=== PATIENT | female | born 1955 | race Caucasian/White ===

== ENCOUNTER 2019-03-11 11:48 | Emergency (ER) | payer MEDICARE ==
[~2019-03-11] VITALS: Ht 162.6 cm; Wt 67.1 kg
[2019-03-11 12:00] VITALS: BP 126/82
[2019-03-11] MEDS ORDERED: CETI10TA16 PO (12:12)
[2019-03-11] MEDS ORDERED: SULF1TAB24 PO (12:12)
--- NOTE | 2019-03-11 12:12 | PHYS DOC ---
Past History Past Medical History: Asthma, Migraines Additional Past Medical Histor: patella fracture Smoking: Non-smoker Alcohol Use: None Drug Use: None Adult General Chief Complaint Chief Complaint: EYE PROBLEMS HPI HPI Patient is a [64-year-old female presents with left facial redness and swelling. It is tender to touch. This has been present for the past 3 days, waxing and waning. No drainage. No trauma. No new makeups. No fever. No visual changes. Patient does not wear glasses or contacts other than reading glasses. Nothing seems to make the symptoms better or worse. Patient is visiting family, coming from [place].[] Review of Systems Review of Systems Constitutional: Denies fever or chills [] Eyes: Denies change in visual acuity, redness, or eye pain [] HENT: Denies nasal congestion or sore throat [] Respiratory: Denies cough or shortness of breath [] Cardiovascular: No chest pain or palpitations[] GI: Denies abdominal pain, nausea, vomiting, bloody stools or diarrhea [] : Denies dysuria or hematuria [] Musculoskeletal: Denies back pain or joint pain [] Integument: See history of present illness[] Neurologic: Denies headache, focal weakness or sensory changes [] Endocrine: Denies polyuria or polydipsia [] All other systems were reviewed and found to be within normal limits, except as documented in this note. Physical Exam Physical Exam Constitutional: Well developed, well nourished, no acute distress, non-toxic appearance. [] HENT: Normocephalic, atraumatic, bilateral external ears normal, oropharynx moist, no oral exudates, nose normal. [] Eyes: PERRLA, EOMI, conjunctiva normal, no discharge. [] Neck: Normal range of motion, no tenderness, supple, no stridor. [] Cardiovascular:Heart rate regular rhythm, no murmur [] Lungs & Thorax: Bilateral breath sounds clear to auscultation [] Abdomen: Not examined. [] Skin: Warm, dry, 2 cm region transverse by 1 cm cephalad to caudad, area of erythema inferior to her left eye. There is some induration. No drainage. No skin sloughing. No petechiae.. [] Back: No tenderness, no CVA tenderness. [] Extremities: No tenderness, no cyanosis, no clubbing, ROM intact, no edema. [] Neurologic: Alert and oriented X 3, normal motor function, normal sensory function, no focal deficits noted. [] Psychologic: Affect normal, judgement normal, mood normal. [] EKG EKG [] Radiology/Procedures Radiology/Procedures [] Course & Med Decision Making Course & Med Decision Making Pertinent Labs and Imaging studies reviewed. (See chart for details) Medical decision making: Believe this to be an area of cellulitis. Possibly an allergic component as well. There is no evidence of Hernandez-Camron syndrome, staph scalded skin syndrome, toxic epidermal necrolysis, nor other significant skin issue. No evidence of an abscess that needs draining at this time.[] Dragon Disclaimer Dragon Disclaimer This electronic medical record was generated, in whole or in part, using a voice recognition dictation system. Departure Departure: Impression: Primary Impression: Skin rash Disposition: HOME, SELF-CARE Condition: IMPROVED Referrals: PCP,UNKNOWN (PCP) Patient Instructions: Cellulitis, Rash Additional Instructions: Follow-up with your regular doctor in 2 days. Return to the ER if worsening pain, redness, fever of more than 101, or any other concerns. Scripts Cetirizine Hcl (CETIRIZINE HCL) 10 Mg Tablet 1 TAB PO DAILY for ALLERGIC REACTION, #30 TAB 0 Refills Prov: MARLENA NIETO DO 03/11/19 Sulfamethoxazole/Trimethoprim (BACTRIM DS TABLET) 1 Each Tablet 1 TAB PO BID for CELLULITIS, #20 TAB Prov: MARLENA NIETO DO 03/11/19 MARLENA NIETO DO March 11, 2019 12:12
== END 2019-03-11 12:15 | disposition home or self-care (01) ==
LOC: ER 11:48
DX: R21 Rash and other nonspecific skin eruption (principal); L53.8 Other specified erythematous conditions; J45.909 Unspecified asthma, uncomplicated; G43.909 Migraine, unspecified, not intractable, without status migrainosus
CPT/HCPCS: 99283

== ENCOUNTER 2019-08-20 10:09 | Emergency (ER) | payer MEDICARE ==
[~2019-08-20] VITALS: Ht 162.6 cm; Wt 65.8 kg
[~2019-08-20 10:09] MED LIST: CETI10TA16 PO; SULF1TAB24 PO
--- NOTE | 2019-08-20 11:00 | PHYS DOC ---
Past History Past Medical History: Asthma, Migraines Additional Past Medical Histor: patella fracture Past Surgical History: Hysterectomy, Tonsillectomy, Other Additional Past Surgical Histo: LEFT TOE Smoking: Non-smoker Alcohol Use: None Drug Use: None Adult General Chief Complaint Chief Complaint: FLU SYMPTOM HPI HPI Patient is a 64-year-old female presents complaining of fever that started 3 days ago and lasted for 2 days with a MAXIMUM TEMPERATURE of 101. She had diarrhea at the onset of this which is now improving. No blood in the stool. She has had a cough and nasal congestion. She also notes to her current than usual urine but there is no dysuria. She has some right-sided chest discomfort with coughing. No worsening of the chest discomfort with exertion. Nasal congestion and throat symptoms worsen with lying down. No improvement with NyQuil or Robitussin. Patient is visiting from [facility]. She reports getting the flu vaccine this year. No other sick family members or contacts that she is aware of.[] Review of Systems Review of Systems Constitutional: Denies shaking chills, see history of present illness [] Eyes: Denies change in visual acuity, redness, or eye pain [] HENT: See history of present illness, no ear pain or sinus pain[] Respiratory: Denies shortness of breath, see history of present illness [] Cardiovascular: No chest pain or palpitations[] GI: Denies abdominal pain, nausea, vomiting, bloody stools, see history of present illness[] : Denies dysuria or hematuria [] Musculoskeletal: Denies back pain or joint pain [] Integument: Denies rash or skin lesions [] Neurologic: Denies headache, focal weakness or sensory changes [] Endocrine: Denies polyuria or polydipsia [] All other systems were reviewed and found to be within normal limits, except as documented in this note. Allergies Allergies Allergies Coded Allergies Type Severity Reaction Last Updated Verified amoxicillin Allergy Unknown 03/11/19 Yes clavulanic acid Allergy Unknown 03/11/19 Yes codeine Allergy Unknown 03/11/19 Yes erythromycin base Allergy Unknown 03/11/19 Yes levofloxacin Allergy Unknown 03/11/19 Yes Physical Exam Physical Exam Constitutional: Well developed, well nourished, no acute distress, non-toxic appearance. [] HENT: Normocephalic, atraumatic, bilateral external ears normal, oropharynx moist, no oral exudates, nose with yellow tinged rhinorrhea, posterior pharyngeal streaking is present. [] Eyes: PERRLA, EOMI, conjunctiva normal, no discharge. [] Neck: Normal range of motion, no tenderness, supple, no stridor. [] Cardiovascular:Heart rate regular rhythm, no murmur [] Lungs & Thorax: Bilateral breath sounds clear to auscultation no increased work of breathing [] Abdomen: Bowel sounds normal, soft, no tenderness, no masses, no pulsatile masses. [] Skin: Warm, dry, no erythema, no rash. [] Back: No tenderness, no CVA tenderness. [] Extremities: No tenderness, no cyanosis, no clubbing, ROM intact, no edema. [] Neurologic: Alert and oriented X 3, normal motor function, normal sensory function, no focal deficits noted. [] Psychologic: Affect normal, judgement normal, mood normal. [] Current Patient Data Vital Signs Vital Signs Date Time Temp Pulse Resp B/P (MAP) Pulse Ox O2 Delivery O2 Flow Rate FiO2 08/20/19 10:20 98.1 99 20 98 Room Air EKG EKG [] Radiology/Procedures Radiology/Procedures PROCEDURE: CHEST PA & LATERAL Chest PA and lateral 08/20/2019. Reason for exam: Cough and fever. No infiltrate or effusion is seen. Heart size and pulmonary vascularity appear normal. IMPRESSION: No acute disease.[] Course & Med Decision Making Course & Med Decision Making Pertinent Labs and Imaging studies reviewed. (See chart for details) ED course: Patient arrived, was placed in bed, and tolerated exam well. She was transferred to and from radiology with any complications. After return of laboratory and imaging findings, these were discussed with the patient who voiced understanding. All questions were answered. She was discharged in improved condition. Medical decision making: Patient does not appear to have influenza, negative strep throat, no evidence of urinary tract infection. Believe this to be a viral syndrome that had multiple body systems to include the GI tract with the diarrheal illness. Will prescribe symptomatically supportive treatment. Patient is nontoxic. No evidence of oral intake intolerance. The blood in the urine is noted however it appears to be minimal. Do not believe the patient to be in rhabdomyolysis. We'll have her increase fluid intake.[] Dragon Disclaimer Dragon Disclaimer This electronic medical record was generated, in whole or in part, using a voice recognition dictation system. Departure Departure: Impression: Primary Impression: Acute febrile illness Additional Impressions: Upper respiratory infection Diarrhea Disposition: 01 HOME, SELF-CARE Condition: IMPROVED Referrals: PCP,UNKNOWN (PCP) Patient Instructions: Diet for Diarrhea, Adult, Fever, Adult, Upper Respiratory Infection, Adult Additional Instructions: Drink plenty of fluids. Follow-up with your regular doctor in 2 days. Return to the ER if worsening discomfort, difficulty breathing, or any other concerns. Scripts Ibuprofen (IBUPROFEN) 400 Mg Tablet 1 TAB PO TID for PAIN OR FEVER, #30 TAB Prov: MARLENA NIETO DO 08/20/19 D-Methorphan Hb/Prometh Hcl (PROMETHAZINE-DM SYRUP) 118 Ml Syrup 5 ML PO PRN Q4HRS for CONGESTION, #120 ML Prov: MARLENA NIETO DO 08/20/19 Problem Qualifiers Additional Impressions: Upper respiratory infection URI type: unspecified URI Qualified Codes: J06.9 - Acute upper respiratory infection, unspecified Diarrhea Diarrhea type: unspecified type Qualified Codes: R19.7 - Diarrhea, un specified MARLENA NIETO DO Aug 20, 2019 11:00
[2019-08-20 11:10] LABS: BACTERIA,URINE FEW /HPF (0-FEW); BILIRUBIN,URINE NEG (NEG); CLARITY,URINE HAZY; COLOR,URINE YELLOW; GLUCOSE,URINE NEG (NEG); NITRITE,URINE NEG (NEG); RBC,URINE RARE /HPF (0-2); SQUAMOUS EPITHELIAL CELL,UR OCC /LPF; UROBILINOGEN,URINE 0.2 mg/dL (0.2 mg/dL)
[2019-08-20 11:11] LABS: HYALINE CASTS, URINE OCC /HPF
[2019-08-20 11:22] LABS: INFLUENZA A PATIENT NEGATIVE (NEGATIVE); INFLUENZA B PATIENT NEGATIVE (NEGATIVE)
--- NOTE | 2019-08-20 11:24 | RAD ---
Chest PA and lateral 08/20/2019. Reason for exam: Cough and fever. No infiltrate or effusion is seen. Heart size and pulmonary vascularity appear normal. IMPRESSION: No acute disease. Electronically signed by: Jefry Clark Jr., MD (08/20/2019 11:21 AM) [facility] [place]
[2019-08-20] MEDS ORDERED: IBUP400T18 PO (11:34)
[2019-08-20] MEDS ORDERED: PROM118S9 PO (11:34)
[2019-08-20 11:35] VITALS: BP 138/83
== END 2019-08-20 11:37 | disposition home or self-care (01) ==
LOC: ER 10:09
DX: J06.9 Acute upper respiratory infection, unspecified (principal); R19.7 Diarrhea, unspecified; J45.909 Unspecified asthma, uncomplicated; G43.909 Migraine, unspecified, not intractable, without status migrainosus; Z90.89 Acquired absence of other organs; Z88.1 Allergy status to other antibiotic agents; Z88.5 Allergy status to narcotic agent
CPT/HCPCS: 71046; 81001; 87070; 87086; 87804; 87880; 99285